=== PATIENT | female | born 1965 | race Caucasian/White ===

== ENCOUNTER 2021-12-18 15:51 | Day surgery (SDC) | payer BC, OTHER ==
[2021-12-18] MEDS ORDERED: Depo-Medrol 40 MG/ML IM ONE (15:52)
[2021-12-18] MEDS ORDERED: Marcaine Mpf 0.5% Vial 30 Ml IJ ONE (15:52)
[2021-12-18] MEDS ORDERED: XYLOCAINE-MPF 1% 5ML SDV IJ ONE (15:52)
--- NOTE | 2021-12-19 18:33 | XRAY ---
11 seconds fluoroscopy time in surgery for injection of the left SI joint.
--- NOTE | 2021-12-20 21:53 | XRAY ---
Indication: Left SI joint injection. Intraoperative fluoroscopy provided for 11 seconds. 2 digital spot images submitted for interpretation demonstrates posterior needle tips projecting over the inferior left SI joint. Correlate with intraoperative findings/report.
== END 2021-12-18 18:47 | disposition home or self-care (01) ==
LOC: SDC-PAIN 15:51
PROVIDERS: ATTEND Psychiatry & Neurology Pain Medicine
DX: M46.1 Sacroiliitis, not elsewhere classified (principal); E11.9 Type 2 diabetes mellitus without complications; Z79.899 Other long term (current) drug therapy
CPT/HCPCS: 27096; 72170; 77002; 82947; J1030; G0260

== ENCOUNTER 2022-02-19 08:32 | Day surgery (SDC) | payer OTHER ==
[2022-02-19] MEDS ORDERED: Marcaine Mpf 0.5% Vial 30 Ml IJ ONE (08:33)
[2022-02-19] MEDS ORDERED: XYLOCAINE-MPF 1% 5ML SDV IJ ONE (08:33)
[2022-02-19] MEDS ORDERED: Depo-Medrol 40 MG/ML IM ONE (08:33)
[2022-02-19] MEDS ORDERED: DIPRIVAN 200 MG/20 ML IV ONE (09:47)
--- NOTE | 2022-02-19 11:31 | XRAY ---
Indication: Right SI joint injection. Intraoperative fluoroscopy provided for 11 seconds. 2 digital spot images submitted for interpretation demonstrate posterior needle tip projecting over the right SI joint. Correlate with intraoperative findings/report.
--- NOTE | 2022-02-19 12:14 | XRAY ---
11 seconds fluoroscopy time in surgery for injection of the right SI joint.
== END 2022-02-19 10:15 | disposition home or self-care (01) ==
LOC: SDC-PAIN 08:32
PROVIDERS: ATTEND Psychiatry & Neurology Pain Medicine
DX: M46.1 Sacroiliitis, not elsewhere classified (principal); E11.9 Type 2 diabetes mellitus without complications; Z79.899 Other long term (current) drug therapy
CPT/HCPCS: 27096; 72170; 77002; 82947; J1030; J2704; G0260

== ENCOUNTER 2022-04-09 07:59 | Day surgery (SDC) | payer OTHER ==
[2022-04-09] MEDS ORDERED: Xylocaine 1% Vial 30 ML PF IJ ONE (08:00)
[2022-04-09] MEDS ORDERED: Depo-Medrol 40 MG/ML IM ONE (08:00)
[2022-04-09] MEDS ORDERED: DIPRIVAN 200 MG/20 ML IV ONE (10:38)
--- NOTE | 2022-04-09 10:44 | XRAY ---
Indication: Bilateral L4-S1 MBB. Intraoperative fluoroscopy provided for 10 seconds. Single digital spot image submitted for interpretation demonstrates posterior needle tips projecting over the expected left and right L4-S1 nerve roots. Correlate with intraoperative findings/report.
[2022-04-09] MEDS ORDERED: Lactated Ringers 1,000 ML IV ONE (12:23)
--- NOTE | 2022-04-09 12:58 | XRAY ---
10 seconds fluoroscopy time in surgery for bilateral L4-S1 MBB.
== END 2022-04-09 10:25 | disposition home or self-care (01) ==
LOC: SDC-PAIN 07:59
PROVIDERS: ATTEND Psychiatry & Neurology Pain Medicine
DX: M47.816 Spondylosis without myelopathy or radiculopathy, lumbar region (principal); E11.9 Type 2 diabetes mellitus without complications; Z79.899 Other long term (current) drug therapy
CPT/HCPCS: 64493; 64494; 72020; 77002; 82947; J1030; J1642; J2001; J2704

== ENCOUNTER 2022-05-07 08:44 | Day surgery (SDC) | payer OTHER ==
[2022-05-07] MEDS ORDERED: Depo-Medrol 40 MG/ML IM ONE (08:45)
[2022-05-07] MEDS ORDERED: BUPIVACAINE 0.5% VIAL IJ ONE ×2 (08:45)
--- NOTE | 2022-05-07 11:29 | XRAY ---
Indication: Bilateral L4-S1 MBB. Intraoperative fluoroscopy provided for 15 seconds. Single digital spot image submitted for interpretation demonstrates posterior needle tips projecting over the expected left and right L4-S1 nerve roots. Correlate with intraoperative findings/report.
[2022-05-07] MEDS ORDERED: Lactated Ringers 1,000 ML IV ONE (11:51)
--- NOTE | 2022-05-07 12:02 | XRAY ---
15 seconds fluoroscopy time used in surgery for bilateral L4-S1 MBB.
== END 2022-05-07 10:40 | disposition home or self-care (01) ==
LOC: SDC-PAIN 08:44
PROVIDERS: ATTEND Psychiatry & Neurology Pain Medicine
DX: M47.816 Spondylosis without myelopathy or radiculopathy, lumbar region (principal); E11.9 Type 2 diabetes mellitus without complications; Z79.899 Other long term (current) drug therapy
CPT/HCPCS: 64493; 64494; 72020; 77002; 82947; J1030; J1642

== ENCOUNTER 2022-06-05 09:02 | Day surgery (SDC) | payer OTHER ==
[2022-06-05] MEDS ORDERED: BUPIVACAINE 0.5% VIAL IJ ONE (09:03)
[2022-06-05] MEDS ORDERED: Depo-Medrol 40 MG/ML IM ONE (09:03)
[2022-06-05] MEDS ORDERED: LIDOCAINE HCL 1% 50 MG/5 ML VL PF IJ ONE (09:03)
[2022-06-05] MEDS ORDERED: Reglan 10 MG/2 ML ONE (10:36)
[2022-06-05] MEDS ORDERED: DIPRIVAN 200 MG/20 ML IV ONE (10:43)
[2022-06-05] MEDS ORDERED: Xylocaine-Mpf 2% 5 Ml Vial ONE (10:45)
--- NOTE | 2022-06-05 11:58 | XRAY ---
Indication: Right L4-S1 RFA. Intraoperative fluoroscopy provided for 18 seconds. 3 digital spot image submitted for interpretation demonstrates posterior needle tips projecting over the expected right L4-S1 nerve roots. Correlate with intraoperative findings/report.
--- NOTE | 2022-06-05 12:40 | XRAY ---
18 seconds of fluoroscopy was used in surgery for a right L4-S1 RFA.
[2022-06-05] MEDS ORDERED: Lactated Ringers 1,000 ML IV ONE (13:29)
== END 2022-06-05 11:15 | disposition home or self-care (01) ==
LOC: SDC-PAIN 09:02
PROVIDERS: ATTEND Psychiatry & Neurology Pain Medicine
DX: M47.816 Spondylosis without myelopathy or radiculopathy, lumbar region (principal); E11.9 Type 2 diabetes mellitus without complications; Z79.899 Other long term (current) drug therapy
CPT/HCPCS: 64635; 64636; 72100; 77002; 82947; J1030; J1642; J2001; J2704

== ENCOUNTER 2022-06-11 10:28 | Day surgery (SDC) | payer OTHER ==
[2022-06-11] MEDS ORDERED: BUPIVACAINE 0.5% VIAL IJ ONE (10:29)
[2022-06-11] MEDS ORDERED: LIDOCAINE HCL 1% 50 MG/5 ML VL PF IJ ONE (10:29)
[2022-06-11] MEDS ORDERED: Depo-Medrol 40 MG/ML IM ONE (10:29)
[2022-06-11] MEDS ORDERED: DIPRIVAN 200 MG/20 ML IV ONE (11:31)
--- NOTE | 2022-06-11 12:16 | XRAY ---
Indication: Left L4-S1 RFA. Intraoperative fluoroscopy provided 23 seconds. 3 digital spot image submitted for interpretation demonstrates posterior needle tips projecting over the expected left L4-S1 nerve roots. Correlate with intraoperative findings/report.
--- NOTE | 2022-06-11 12:18 | XRAY ---
23 seconds of fluoroscopy was used in surgery for a left L4-S1 RFA.
[2022-06-11] MEDS ORDERED: Lactated Ringers 1,000 ML IV ONE (12:53)
== END 2022-06-11 11:55 | disposition home or self-care (01) ==
LOC: SDC-PAIN 10:28
PROVIDERS: ATTEND Psychiatry & Neurology Pain Medicine
DX: M47.816 Spondylosis without myelopathy or radiculopathy, lumbar region (principal); E11.9 Type 2 diabetes mellitus without complications; Z79.899 Other long term (current) drug therapy
CPT/HCPCS: 64635; 64636; 72100; 77002; 82947; J1030; J1642; J2001; J2704

== ENCOUNTER 2022-07-30 16:07 | Day surgery (SDC) | payer OTHER ==
[2022-07-30] MEDS ORDERED: Depo-Medrol 40 MG/ML IM ONE (16:08)
[2022-07-30] MEDS ORDERED: BUPIVACAINE 0.5% VIAL IJ ONE (16:08)
--- NOTE | 2022-07-30 19:45 | XRAY ---
Indication: Bilateral SI joint injection. Intraoperative fluoroscopy provided for 22 seconds. 4 digital spot images submitted for interpretation demonstrates posterior needle tip projecting over the left and right SI joint. Correlate with intraoperative findings/report.
--- NOTE | 2022-07-31 10:46 | XRAY ---
22 seconds fluoroscopy time in surgery for injections of both SI joints.
== END 2022-07-30 18:35 | disposition home or self-care (01) ==
LOC: SDC-PAIN 16:07
PROVIDERS: ATTEND Psychiatry & Neurology Pain Medicine
DX: M46.1 Sacroiliitis, not elsewhere classified (principal); E11.9 Type 2 diabetes mellitus without complications; Z79.899 Other long term (current) drug therapy
CPT/HCPCS: 27096; 72202; 77002; 82947; J1030; G0260

== ENCOUNTER 2022-08-27 11:50 | Day surgery (SDC) | payer OTHER ==
[2022-08-27] MEDS ORDERED: BUPIVACAINE 0.5% VIAL IJ ONE (11:51)
[2022-08-27] MEDS ORDERED: LIDOCAINE HCL 1% 50 MG/5 ML VL PF IJ ONE (11:51)
[2022-08-27] MEDS ORDERED: Depo-Medrol 40 MG/ML IM ONE (11:51)
[2022-08-27] MEDS ORDERED: DIPRIVAN 200 MG/20 ML IV ONE (13:49)
[2022-08-27] MEDS ORDERED: Lactated Ringers 1,000 ML IV ONE (13:58)
--- NOTE | 2022-08-27 15:07 | XRAY ---
32 seconds of fluoroscopy was used in surgery for a right sacroiliac joint RFA.
--- NOTE | 2022-08-27 15:07 | XRAY ---
Indication: Right SI joint RFA. Intraoperative fluoroscopy provided for 32 seconds. 2 digital spot image submitted for interpretation demonstrates 4 posterior needle tips projecting just medial to the right SI joint. Correlate with intraoperative findings/report.
== END 2022-08-27 14:20 | disposition home or self-care (01) ==
LOC: SDC-PAIN 11:50
PROVIDERS: ATTEND Psychiatry & Neurology Pain Medicine
DX: M47.816 Spondylosis without myelopathy or radiculopathy, lumbar region (principal); E11.9 Type 2 diabetes mellitus without complications; Z79.899 Other long term (current) drug therapy
CPT/HCPCS: 64625; 72170; 77002; 82947; J1030; J1642; J2001; J2704

== ENCOUNTER 2022-09-03 08:51 | Day surgery (SDC) | payer OTHER ==
[2022-09-03] MEDS ORDERED: BUPIVACAINE 0.5% VIAL IJ ONE (08:52)
[2022-09-03] MEDS ORDERED: LIDOCAINE HCL 1% 50 MG/5 ML VL PF IJ ONE (08:52)
[2022-09-03] MEDS ORDERED: Depo-Medrol 40 MG/ML IM ONE (08:52)
[2022-09-03] MEDS ORDERED: DIPRIVAN 200 MG/20 ML IV ONE (10:18)
--- NOTE | 2022-09-03 11:10 | XRAY ---
Indication: Left SI joint RFA. Intraoperative fluoroscopy provided for 39 seconds. 2 digital spot images submitted for interpretation demonstrates 4 posterior needle tips projecting medial to the left SI joint. Correlate with intraoperative findings/report.
--- NOTE | 2022-09-03 12:00 | XRAY ---
39 seconds of fluoroscopy was used in surgery for a left sacroiliac joint RFA.
[2022-09-03] MEDS ORDERED: Lactated Ringers 1,000 ML IV ONE (12:09)
== END 2022-09-03 11:10 | disposition home or self-care (01) ==
LOC: SDC-PAIN 08:51
PROVIDERS: ATTEND Psychiatry & Neurology Pain Medicine
DX: M47.816 Spondylosis without myelopathy or radiculopathy, lumbar region (principal); E11.9 Type 2 diabetes mellitus without complications; Z79.899 Other long term (current) drug therapy
CPT/HCPCS: 64625; 72170; 77002; 82947; J1030; J1642; J2001; J2704

== ENCOUNTER 2022-11-05 08:35 | Day surgery (SDC) | payer OTHER ==
[2022-11-05] MEDS ORDERED: BUPIVACAINE 0.5% VIAL IJ ONE (08:36)
[2022-11-05] MEDS ORDERED: Depo-Medrol 40 MG/ML IM ONE (08:36)
[2022-11-05] MEDS ORDERED: DIPRIVAN 200 MG/20 ML IV ONE (09:33)
--- NOTE | 2022-11-05 12:03 | XRAY ---
Indication: Left shoulder and subacromial bursa injections. Intraoperative fluoroscopy provided for 19 seconds. 3 digital spot images submitted for interpretation demonstrates needle tip projecting over the left glenohumeral joint superiorly and second needle tip subacromial. Small amount of contrast injected for both needle tip placement. Correlate with intraoperative findings/report.
--- NOTE | 2022-11-05 12:03 | XRAY ---
Indication: Right shoulder and subacromial bursa injections. Intraoperative fluoroscopy provided for 15 seconds. 2 digital spot images submitted for interpretation demonstrates needle tip projecting over the right glenohumeral joint superiorly and second needle tip subacromial. Small amount of contrast injected for both needle tip placement. Correlate with intraoperative findings/report.
--- NOTE | 2022-11-05 12:18 | XRAY ---
15 seconds of fluoroscopy was used in surgery for a right intra-articular shoulder and subacromial bursa.
--- NOTE | 2022-11-05 12:19 | XRAY ---
19 seconds of fluoroscopy was used in surgery for a left intra-articular shoulder and subacromial bursa.
[2022-11-05] MEDS ORDERED: Lactated Ringers 1,000 ML IV ONE (14:10)
== END 2022-11-05 09:29 | disposition home or self-care (01) ==
LOC: SDC-PAIN 08:35
PROVIDERS: ATTEND Psychiatry & Neurology Pain Medicine
DX: M19.012 Primary osteoarthritis, left shoulder (principal); M19.011 Primary osteoarthritis, right shoulder; M75.52 Bursitis of left shoulder; M75.51 Bursitis of right shoulder; E11.9 Type 2 diabetes mellitus without complications; Z79.899 Other long term (current) drug therapy
CPT/HCPCS: 20610; 73030; 77002; 82947; J1030; J1642; J2704; Q9966

== ENCOUNTER 2022-12-24 07:47 | Day surgery (SDC) | payer OTHER ==
[2022-12-24] MEDS ORDERED: Decadron 4 MG INJ IV ONE (07:48)
[2022-12-24] MEDS ORDERED: Depo-Medrol 40 MG/ML IM ONE (07:48)
[2022-12-24] MEDS ORDERED: Sodium Chloride 0.9(Preservative Free) 10 ML IJ ONE (07:48)
[2022-12-24] MEDS ORDERED: LIDOCAINE HCL 1% 50 MG/5 ML VL PF IJ ONE (07:48)
[2022-12-24] MEDS ORDERED: DIPRIVAN 200 MG/20 ML IV ONE (09:15)
[2022-12-24] MEDS ORDERED: Lactated Ringers 1,000 ML IV ONE (10:50)
--- NOTE | 2022-12-24 11:50 | XRAY ---
Indication: Right piriformis injection Intraoperative fluoroscopy provided for 16 seconds. Single digital spot image submitted for interpretation demonstrates posterior needle tip project over the expected right piriformis muscle. Small amount of contrast injected for needle tip placement. Correlate with intraoperative findings/report.
--- NOTE | 2022-12-24 11:50 | XRAY ---
Indication: Right L4-S1 transforaminal LIBBY. Intraoperative fluoroscopy provided for 23 seconds. 4 digital spot image submitted for interpretation demonstrates posterior needle tips project over the expected right L4 and L5 nerve roots. Small amount of contrast injected for needle tip placement. Correlate with intraoperative findings/report.
--- NOTE | 2022-12-24 13:02 | XRAY ---
23 seconds of fluoroscopy was used in surgery for a right L4-S1 transforaminal LIBBY.
--- NOTE | 2022-12-24 13:03 | XRAY ---
16 seconds of fluoroscopy was used in surgery for a right piriformis injection.
== END 2022-12-24 09:48 | disposition home or self-care (01) ==
LOC: SDC-PAIN 07:47
PROVIDERS: ATTEND Psychiatry & Neurology Pain Medicine
DX: M54.16 Radiculopathy, lumbar region (principal); M79.18 Myalgia, other site; E11.9 Type 2 diabetes mellitus without complications; Z79.899 Other long term (current) drug therapy
CPT/HCPCS: 20552; 64483; 64484; 72100; 72170; 77002; 77003; 82947; J1030; J1100; J1642; J2001; J2704; Q9966

== ENCOUNTER 2023-02-25 08:55 | Day surgery (SDC) | payer OTHER ==
[2023-02-25] MEDS ORDERED: Decadron 4 MG INJ IV ONE (08:56)
[2023-02-25] MEDS ORDERED: LIDOCAINE HCL 2% 100 MG/5 ML IJ ONE (08:56)
[2023-02-25] MEDS ORDERED: DIPRIVAN 200 MG/20 ML IV ONE (10:13)
--- NOTE | 2023-02-25 10:51 | XRAY ---
Indication: Right C2-C4 MBB. Intraoperative fluoroscopy provided for 12 seconds. 2 digital spot image submitted for interpretation demonstrates posterior needle tips projecting over the expected right C2-C4 nerve roots. Correlate with intraoperative findings/report.
--- NOTE | 2023-02-25 10:53 | XRAY ---
12 seconds of fluoroscopy was used in surgery for a right C2-C4 MBB.
[2023-02-25] MEDS ORDERED: Lactated Ringers 1,000 ML IV ONE (14:08)
== END 2023-02-25 10:40 | disposition home or self-care (01) ==
LOC: SDC-PAIN 08:55
PROVIDERS: ATTEND Psychiatry & Neurology Pain Medicine
DX: M47.812 Spondylosis without myelopathy or radiculopathy, cervical region (principal); Z79.899 Other long term (current) drug therapy
CPT/HCPCS: 64490; 64491; 72040; 77002; 82947; J1100; J1642; J2704

== ENCOUNTER 2023-10-07 07:42 | Day surgery (SDC) | payer OTHER ==
[2023-10-07] MEDS ORDERED: Depo-Medrol 40 MG/ML IM ONE (07:43)
[2023-10-07] MEDS ORDERED: BUPIVACAINE 0.5% VIAL IJ ONE (07:43)
[2023-10-07] MEDS ORDERED: DIPRIVAN 200 MG/20 ML IV ONE (09:05)
[2023-10-07] MEDS ORDERED: Lactated Ringers 1,000 ML IV ONE (11:05)
--- NOTE | 2023-10-07 12:24 | XRAY ---
Indication: Left shoulder and subacromial bursa injection. Intraoperative fluoroscopy provided for 14 seconds. 2 digital spot image submitted for interpretation demonstrates needle tip projecting over left glenohumeral joint superiorly. Second needle tip subacromial. Small amount of contrast injected for needle tip placement. Correlate with intraoperative findings/report.
--- NOTE | 2023-10-07 12:25 | XRAY ---
Indication: Right shoulder and subacromial bursa injection. Intraoperative fluoroscopy provided for 17 seconds. 2 digital spot image submitted for interpretation demonstrates needle tip projecting over right glenohumeral joint superiorly. Second needle tip subacromial. Small amount of contrast injected for needle tip placement. Correlate with intraoperative findings/report.
--- NOTE | 2023-10-07 12:33 | XRAY ---
17 seconds of fluoroscopy was used in surgery for a right intra-articular shoulder and subacromial bursa injection.
--- NOTE | 2023-10-07 12:33 | XRAY ---
14 seconds of fluoroscopy was used in surgery for a left intra-articular shoulder and subacromial bursa injection.
== END 2023-10-07 09:38 | disposition home or self-care (01) ==
LOC: SDC-PAIN 07:42
PROVIDERS: ATTEND Psychiatry & Neurology Pain Medicine
DX: M19.012 Primary osteoarthritis, left shoulder (principal); M19.011 Primary osteoarthritis, right shoulder; E11.9 Type 2 diabetes mellitus without complications; M75.52 Bursitis of left shoulder; M75.51 Bursitis of right shoulder
CPT/HCPCS: 20610; 73030; 77002; 82947; J1010; J1642; J2704; Q9966

== ENCOUNTER 2024-04-06 08:07 | Day surgery (SDC) | payer OTHER ==
[~2024-04-06 08:07] MED LIST: DIPRIVAN 200 MG/20 ML IV ONE
[2024-04-06] MEDS ORDERED: Depo-Medrol 40 MG/ML IM ONE (08:08)
[2024-04-06] MEDS ORDERED: BUPIVACAINE 0.5% VIAL IJ ONE (08:08)
[2024-04-06] MEDS ORDERED: LIDOCAINE HCL 1% AMPUL 5 ML IJ ONE (08:08)
[2024-04-06] MEDS ORDERED: DIPRIVAN 200 MG/20 ML IV ONE (09:49)
--- NOTE | 2024-04-06 11:54 | XRAY ---
Indication: Right L4-S1 RFA. Intraoperative fluoroscopy provided for 13 seconds. 5 digital spot image submitted for interpretation demonstrates posterior needle tips projecting over the expected right L4-S1 nerve roots. Correlate with intraoperative findings/report.
--- NOTE | 2024-04-06 12:10 | XRAY ---
13 seconds of fluoroscopy was used in surgery for a right L4-S1 RFA.
== END 2024-04-06 10:40 | disposition home or self-care (01) ==
LOC: SDC-PAIN 08:07
PROVIDERS: ATTEND Psychiatry & Neurology Pain Medicine
DX: M47.816 Spondylosis without myelopathy or radiculopathy, lumbar region (principal)
CPT/HCPCS: 64635; 64636; 72100; 77002; 82947; J1642; J2704

== ENCOUNTER 2024-04-13 08:13 | Day surgery (SDC) | payer OTHER ==
[2024-04-13] MEDS ORDERED: LIDOCAINE HCL 1% AMPUL 5 ML IJ ONE (08:14)
[2024-04-13] MEDS ORDERED: BUPIVACAINE 0.5% VIAL IJ ONE (08:14)
[2024-04-13] MEDS ORDERED: Depo-Medrol 40 MG/ML IM ONE (08:14)
[2024-04-13] MEDS ORDERED: DIPRIVAN 200 MG/20 ML IV ONE (09:50)
--- NOTE | 2024-04-13 12:19 | XRAY ---
Indication: Left L4-S1 RFA. Intraoperative fluoroscopy provided for 17 seconds. 4 digital spot image submitted for interpretation demonstrates posterior needle tips projecting over the expected left L4-S1 nerve roots. Correlate with intraoperative findings/report.
--- NOTE | 2024-04-13 12:36 | XRAY ---
17 seconds of fluoroscopy was used in surgery for a left L4-S1 RFA.
== END 2024-04-13 10:10 | disposition home or self-care (01) ==
LOC: SDC-PAIN 08:13
PROVIDERS: ATTEND Psychiatry & Neurology Pain Medicine
DX: M54.16 Radiculopathy, lumbar region (principal)
CPT/HCPCS: 64635; 64636; 72100; 77002; 82947; J1642; J2704

== ENCOUNTER 2024-10-26 15:38 | Day surgery (SDC) | payer OTHER | END 2024-10-26 17:00 | disposition home or self-care (01) | LOC: SDC-PAIN 15:38 | PROVIDERS: ATTEND Psychiatry & Neurology Pain Medicine | DX: Z53.8 Procedure and treatment not carried out for other reasons (principal); E11.65 Type 2 diabetes mellitus with hyperglycemia | CPT/HCPCS: 82947 ==